=== PATIENT | male | born 1930 | race Asian ===

== ENCOUNTER 2016-08-17 10:50 | Emergency (ER) | payer MEDICARE, MEDICAID ==
[~2016-08-17] VITALS: Ht 162.6 cm; Wt 59.0 kg
[~2016-08-17 10:50] MED LIST: ALLO300T2; ASPI81CH43; INDO50CA82; LISI-275; OYST500T29; PIOG15TA38; PIOG30TA7; SIMIVASTATIN; SITA50TA; TRAM-411; [UNRECOGNIZED DRUG - OTHER]
[2016-08-17 11:09] VITALS: BP 129/69
== END 2016-08-17 13:23 | disposition home or self-care (01) ==
LOC: ER 10:54
DX: B86 Scabies (principal); M10.9 Gout, unspecified; E78.5 Hyperlipidemia, unspecified; I10 Essential (primary) hypertension

== ENCOUNTER 2016-10-23 10:36 | Emergency (ER) | payer MEDICARE, MEDICAID ==
[~2016-10-23] VITALS: Ht 162.6 cm; Wt 59.0 kg
[2016-10-23 12:29] VITALS: BP 130/43
[2016-10-23] MEDS ORDERED: SODIUM CHLORIDE 0.9% 1,000 ML IV ONE (14:37)
[2016-10-23] MEDS ORDERED: MAGNESIUM CITRATE SOLUTION 300 ML BTL PO ONE (14:45)
[2016-10-23] MEDS ORDERED: SODIUM CHLORIDE 0.9% 1,000 ML IV SCH (14:46)
[2016-10-23] MEDS ORDERED: NITROGLYCERIN 0.4 MG SL TAB SL PRN (15:00)
[2016-10-23] MEDS ORDERED: HYDROcodone-ACET 5/325MG TAB PO PRN (15:00)
[2016-10-23] MEDS ORDERED: FAMOTIDINE (10MG/ML) 2ML VL IV SCH (15:00)
[2016-10-23] MEDS ORDERED: ACETAMINOPHEN 500 MG TAB PO PRN (15:00)
[2016-10-23] MEDS ORDERED: MORPHINE SULF INJ 2 MG/ML SYRINGE 1ML IV PRN ×2 (15:00)
[2016-10-23] MEDS ORDERED: LORazepam 0.5 MG TAB PO PRN (15:00)
[2016-10-23] MEDS ORDERED: PROMETHAZINE HCL 25 MG/ML 1ML IV PRN (15:00)
[2016-10-23] MEDS ORDERED: TEMAZEPAM 15 MG CAP PO PRN (15:00)
[2016-10-23] MEDS ORDERED: cefTRIAXone 1GM/50ML D5W 50 ML IV ONE (15:00)
[2016-10-23 15:06] LABS: Urine RBC None Seen /hpf (0 - 3)
[2016-10-23] MEDS ORDERED: ENOXAPARIN SOD 30 MG/0.3 ML SYRINGE SC ONE (15:15)
[2016-10-23] MEDS ORDERED: FAMOTIDINE (10MG/ML) 2ML VL IV ONE (15:15)
[2016-10-23 15:33] LABS: Albumin 4.2 g/dL (3.4-5.0); BUN/Creatinine Ratio 12.4; Bilirubin, Total 0.4 mg/dL (0.2-1.0); Calcium 9.6 mg/dL (8.5-10.1); Potassium 4.5 mmol/L (3.5-5.1); Total Protein 8.7 g/dL (6.4-8.2)
[2016-10-23 15:35] LABS: Basophils # (auto) 0 uL; Basophils % (auto) 0.6 % (0.0-2.0); Eosinophils # (auto) 0.2 uL; Eosinophils % (auto) 2.7 % (0.0-7.0); Hematocrit 40.4 % (41.0-53.0); Hemoglobin 13.5 g/dL (13.5-17.5); Lymphocytes # (auto) 1.8 uL; Mean Corpuscular Hemoglobin 29.9 pg (28.0-32.0); Mean Corpuscular Hgb Conc. 33.3 g/dL (32.0-36.0); Mean Corpuscular Volume 89.8 fL (80.0-100.0); Mean Platelet Volume 8.3 fL (7.4-10.4); Monocytes # (auto) 0.5 uL; Monocytes % (auto) 7.5 % (0.0-12.0); Neutrophils # (auto) 4.5 uL; Neutrophils % (auto) 64.2 % (37.0-80.0); Platelet Count (auto) 212 10^3/uL (140-450); Red Cell Distribution Width 14.4 % (11.6-16.0)
[2016-10-23 16:09] LABS: Partial Thromboplastin Time 26.4 sec (22.64-33.71); Prothrombin Time 10.3 sec (9.37-12.3)
[2016-10-23 16:15] LABS: Urine Bilirubin Negative (Negative); Urine Blood Negative /uL (Negative); Urine Color Yellow (Yellow); Urine Glucose Normal (Normal); Urine Hyaline Cast FEW /lpf (0 - 2); Urine Ketone Negative (Negative); Urine Nitrite Negative (Negative); Urine Urobilinogen Normal (Negative); Urine pH 5.5 (5.0-8.0)
[2016-10-23] MEDS ORDERED: metroNIDAZOLE 500MG/100ML 100 ML IV SCH (18:00)
[2016-10-24] MEDS ORDERED: cefTRIAXone 1GM/50ML D5W 50 ML IV SCH (09:00)
[2016-10-24] MEDS ORDERED: ENOXAPARIN SOD 30 MG/0.3 ML SYRINGE SC SCH (10:00)
[2016-10-24] MEDS ORDERED: FAMOTIDINE (10MG/ML) 2ML VL IV SCH (10:00)
[2016-10-24] MEDS ORDERED: ENOXAPARIN SOD 40 MG/0.4 ML SYRINGE SC SCH (10:00)
== END 2016-10-23 15:47 | disposition left against medical advice (07) ==
LOC: ER 10:46
DX: R19.7 Diarrhea, unspecified (principal); I10 Essential (primary) hypertension; M10.9 Gout, unspecified; E78.5 Hyperlipidemia, unspecified; Z79.82 Long term (current) use of aspirin; Z79.899 Other long term (current) drug therapy
CPT/HCPCS: 36415; 71020; 74000; 80053; 81001; 82150; 82378; 83690; 85025; 85610; 85652; 85730; 86141

== ENCOUNTER 2016-11-18 12:51 | Emergency (ER) | payer MEDICARE, MEDICAID ==
[~2016-11-18] VITALS: Ht 162.6 cm; Wt 59.0 kg
[2016-11-18 19:04] VITALS: BP 125/69
[2016-11-18] MEDS ORDERED: METHOCARBAMOL 500 MG TAB PO ONE (20:15)
[2016-11-18] MEDS ORDERED: KETOROLAC TROMETH 60MG/2ML VIAL IM ONE (20:15)
== END 2016-11-18 21:31 | disposition home or self-care (01) ==
LOC: ER 12:51
DX: M10.052 Idiopathic gout, left hip (principal); M10.051 Idiopathic gout, right hip; M79.1 Myalgia; E78.5 Hyperlipidemia, unspecified; I10 Essential (primary) hypertension; I12.9 Hypertensive chronic kidney disease with stage 1 through stage 4 chronic kidney disease, or unspecified chronic kidney disease; N18.3 Chronic kidney disease, stage 3 (moderate)
CPT/HCPCS: 96372; 99283; J1885

== ENCOUNTER 2016-12-20 09:49 | Emergency (ER) | payer MEDICARE, MEDICAID ==
[~2016-12-20] VITALS: Ht 160 cm; Wt 63.5 kg
[2016-12-20 09:57] VITALS: BP 105/47
== END 2016-12-20 11:37 | disposition home or self-care (01) ==
LOC: ER 09:49
DX: M79.1 Myalgia (principal); E78.5 Hyperlipidemia, unspecified; M10.9 Gout, unspecified; G89.29 Other chronic pain; I10 Essential (primary) hypertension; Z76.0 Encounter for issue of repeat prescription

== ENCOUNTER 2017-06-16 03:04 | Emergency (ER) | payer MEDICARE, MEDICAID ==
[~2017-06-16] VITALS: Ht 154.9 cm; Wt 59.4 kg
[2017-06-16 07:25] VITALS: BP 156/70
== END 2017-06-16 07:44 | disposition home or self-care (01) ==
LOC: ER 03:06
DX: M79.1 Myalgia (principal); E78.00 Pure hypercholesterolemia, unspecified; M10.9 Gout, unspecified; I10 Essential (primary) hypertension; Z79.82 Long term (current) use of aspirin
CPT/HCPCS: 82962

== ENCOUNTER 2017-12-13 10:18 | Emergency (ER) | payer MEDICARE, MEDICAID ==
[~2017-12-13] VITALS: Ht 162.6 cm; Wt 61.2 kg
[~2017-12-13 10:18] MED LIST changes: -PIOG30TA7; +PIOG30TA8
[2017-12-13 11:05] LABS: Basophils # (auto) 0.1 uL; Basophils % (auto) 1.1 % (0.0-2.0); Eosinophils # (auto) 0.3 uL; Eosinophils % (auto) 4.8 % (0.0-7.0); Hematocrit 34.1 % (41.0-53.0); Hemoglobin 11.3 g/dL (13.5-17.5); Lymphocytes % (auto) 15.3 % (10.0-50.0); Mean Corpuscular Hemoglobin 29.8 pg (28.0-32.0); Mean Corpuscular Volume 90.1 fL (80.0-100.0); Monocytes # (auto) 0.6 uL; Monocytes % (auto) 8.4 % (0.0-12.0); Neutrophils # (auto) 4.7 uL; Neutrophils % (auto) 70.4 % (37.0-80.0); Platelet Count (auto) 228 10^3/uL (140-450); Red Blood Cells 3.79 10^6/uL (4.5-5.90); Red Cell Distribution Width 14.2 % (11.8-14.3); White Blood Cell 6.7 10^3/uL (4.4-10.8)
[2017-12-13 11:31] LABS: Albumin 3.3 g/dL (3.4-5.0); BUN/Creatinine Ratio 18.3; Bilirubin, Total 0.3 mg/dL (0.2-1.0); Calcium 9.1 mg/dL (8.5-10.1); Potassium 4.4 mmol/L (3.5-5.1); Total Protein 8.1 g/dL (6.4-8.2)
[2017-12-13 11:50] LABS: Urine WBC None Seen /hpf (0 - 3)
[2017-12-13 12:20] LABS: Urine Bacteria NONE SEEN /hpf (None Seen); Urine Blood Negative /uL (Negative); Urine Specific Gravity 1.012 (1.001-1.035)
[2017-12-13 12:21] VITALS: BP 139/71
== END 2017-12-13 15:23 | disposition home or self-care (01) ==
LOC: ER 10:22
DX: M48.061 Spinal stenosis, lumbar region without neurogenic claudication (principal); M25.552 Pain in left hip; M10.9 Gout, unspecified; G89.29 Other chronic pain; I25.10 Atherosclerotic heart disease of native coronary artery without angina pectoris; E78.5 Hyperlipidemia, unspecified; I12.9 Hypertensive chronic kidney disease with stage 1 through stage 4 chronic kidney disease, or unspecified chronic kidney disease; N18.3 Chronic kidney disease, stage 3 (moderate); Z79.82 Long term (current) use of aspirin; Z95.1 Presence of aortocoronary bypass graft
CPT/HCPCS: 36415; 72131; 73130; 73502; 80053; 81001; 83690; 85025; 93005; 94761

== ENCOUNTER 2018-04-17 08:32 | Emergency (ER) | payer MEDICARE, MEDICAID ==
[~2018-04-17] VITALS: Ht 160 cm; Wt 65.8 kg
[2018-04-17 09:03] VITALS: BP 141/75
[2018-04-17] MEDS ORDERED: HYDROcodone-ACET 7.5/325MG TAB PO ONE (09:15)
== END 2018-04-17 10:41 | disposition home or self-care (01) ==
LOC: ER 08:32
DX: S16.1XXA Strain of muscle, fascia and tendon at neck level, initial encounter (principal); I25.810 Atherosclerosis of coronary artery bypass graft(s) without angina pectoris; R51 Headache; E11.9 Type 2 diabetes mellitus without complications; E78.5 Hyperlipidemia, unspecified; I10 Essential (primary) hypertension; X58.XXXA Exposure to other specified factors, initial encounter; Y93.89 Activity, other specified; Y92.89 Other specified places as the place of occurrence of the external cause; Y99.8 Other external cause status
CPT/HCPCS: 70450; 72125; 93005

== ENCOUNTER 2019-04-28 11:03 | Emergency (ER) | payer MEDICARE, MEDICAID ==
[~2019-04-28] VITALS: Ht 162.6 cm; Wt 65.8 kg
[~2019-04-28 11:03] MED LIST changes: +PIOG30TA20; -PIOG30TA8
[2019-04-28 12:36] VITALS: BP 113/48
[2019-04-28] MEDS ORDERED: ACETAMINOPHEN 325 MG TAB PO ONE (13:15)
== END 2019-04-28 13:32 | disposition home or self-care (01) ==
LOC: ER 11:03
DX: S22.31XA Fracture of one rib, right side, initial encounter for closed fracture (principal); I25.810 Atherosclerosis of coronary artery bypass graft(s) without angina pectoris; E11.9 Type 2 diabetes mellitus without complications; M10.9 Gout, unspecified; E78.5 Hyperlipidemia, unspecified; I10 Essential (primary) hypertension; Z95.1 Presence of aortocoronary bypass graft; Z79.899 Other long term (current) drug therapy; Z79.82 Long term (current) use of aspirin; W01.10XA Fall on same level from slipping, tripping and stumbling with subsequent striking against unspecified object, initial encounter; Y93.01 Activity, walking, marching and hiking; Y99.8 Other external cause status; Y92.89 Other specified places as the place of occurrence of the external cause
CPT/HCPCS: 71101; 93005

== ENCOUNTER 2019-05-06 12:52 | Inpatient (IN) | payer MEDICARE, MEDICAID ==
[~2019-05-06] VITALS: Ht 162.6 cm; Wt 58.9 kg
[2019-05-06] MEDS ORDERED: SODIUM CHLORIDE 0.9% 500 ML IV ONE (13:27)
[2019-05-06] MEDS ORDERED: ONDANSETRON HCL 4 MG/2 ML VIAL IV ONE (13:30)
[2019-05-06 14:14] LABS: Basophils # (auto) 0 uL; Basophils % (auto) 0.8 % (0.0-2.0); Eosinophils # (auto) 0.4 uL; Eosinophils % (auto) 6.6 % (0.0-7.0); Hematocrit 38.6 % (41.0-53.0); Hemoglobin 12.9 g/dL (13.5-17.5); Lymphocytes # (auto) 1.1 uL; Lymphocytes % (auto) 19.6 % (10.0-50.0); Mean Corpuscular Hemoglobin 30.3 pg (28.0-32.0); Mean Corpuscular Hgb Conc. 33.3 g/dL (32.0-36.0); Monocytes # (auto) 0.6 uL; Monocytes % (auto) 11.4 % (0.0-12.0); Neutrophils # (auto) 3.5 uL; Neutrophils % (auto) 61.6 % (37.0-80.0); Platelet Count (auto) 216 10^3/uL (140-450); Red Blood Cells 4.24 10^6/uL (4.5-5.90); Red Cell Distribution Width 14.3 % (11.8-14.3); White Blood Cell 5.6 10^3/uL (4.4-10.8)
[2019-05-06 14:25] LABS: Albumin 3.7 g/dL (3.4-5.0); Anion Gap 3 (5-15); Blood Urea Nitrogen 47 mg/dL (7-18); Calcium 9.2 mg/dL (8.5-10.1); Carbon Dioxide 25 mmol/L (21-32); Chloride 112 mmol/L (98-107); Glucose 118 mg/dL (74-106); Potassium 4.8 mmol/L (3.5-5.1); Sodium 140 mmol/L (136-145)
[2019-05-06 14:31] LABS: Alanine Aminotransferase 39 U/L (16-61); Alkaline Phosphatase 76 U/L (45-117); Aspartate Aminotransferase 32 U/L (15-37); BUN/Creatinine Ratio 24.7; Bilirubin, Total 0.6 mg/dL (0.2-1.0); GFR African American 43 mL/min; GFR Non-African American 36 mL/min; Total Protein 8.3 g/dL (6.4-8.2)
[2019-05-06] MEDS ORDERED: TEMAZEPAM 15 MG CAP PO PRN (14:45)
[2019-05-06] MEDS ORDERED: LACTULOSE 20Gm/30ML SOLN PO PRN (14:45)
[2019-05-06] MEDS ORDERED: MORPHINE SULF INJ 2 MG/ML SYRINGE 1ML IV PRN (14:45)
[2019-05-06] MEDS ORDERED: traMADol HCL 50 MG TAB PO PRN (14:45)
[2019-05-06] MEDS ORDERED: ACETAMINOPHEN 500 MG TAB PO PRN (14:45)
[2019-05-06] MEDS ORDERED: DEXTROSE (50%) 50ML SYRG IV PRN (14:45)
[2019-05-06] MEDS ORDERED: NITROGLYCERIN 0.4 MG SL TAB SL PRN (14:45)
[2019-05-06] MEDS ORDERED: ONDANSETRON HCL 4 MG/2 ML VIAL IV PRN (14:45)
[2019-05-06] MEDS ORDERED: ALBUTEROL SULF 2.5 MG/0.5ML(0.5%) NEB SOLN NEB PRN ×2 (14:45→15:30)
[2019-05-06] MEDS: SODIUM CHLORIDE 0.9% 1,000 ML IV SCH (15:16)
--- NOTE | 2019-05-06 15:22 | NUR ---
Telemetry admit from [facility] admitted to Telemetry unit after SBAR received. Patient oriented to primary RN, unit, room, bed, and unit policies regarding patient care and visiting hours. Patient now on continuous telemetry monitoring, tele box # [id number] and telemetry reading on arrival to unit is SR 78. Patient weighed by bedscale and encouraged to call if they need something. All questions and concerns addressed, patient verbalized understanding. Family member at bedside. Patient does not speak much [place].
[2019-05-06] MEDS ORDERED: cefTRIAXone 1GM/50ML D5W 50 ML IV ONE (15:30)
[2019-05-06 16:49] VITALS: BP 146/50
[2019-05-06] MEDS: InsuLIN REG 1unit/0.01ml Soln (100units/ml) SC SCH ×2 (17:00→21:52)
[2019-05-06 17:11] VITALS: BP 158/73
[2019-05-06] MEDS ORDERED: TUBERCULIN PPD 5 UNIT/0.1 ML ID ONE (18:00)
--- NOTE | 2019-05-06 18:17 | NUR ---
RT NOTE PT WAS SEEN BY RT FRO HHN TX. PT IS EATING EVENING MEAL. NO SOB OR DISTRESS NOTED. FAMILY MEMBER NOTIFIED RT WILL RETURN TO DO HHN TX IN A BIT
[2019-05-06] MEDS: ALBUTEROL SULF 2.5 MG/0.5ML(0.5%) NEB SOLN NEB SCH (18:29)
[2019-05-06] MEDS: IPRATROPIUM BROM 0.5 MG/2.5ML INH SOL NEB SCH (18:29)
--- NOTE | 2019-05-06 18:33 | NUR ---
RT NOTE PT WAS SEEN BY RT FOR HHN TX. PT TOLERATES WELL VIA MASK. FAMILY MEMBER AT BEDSIDE HELPS TO COMMUNICATE WITH PATIENT. PT FOUND ON R/A AND LEFT ON R/A POST TX. CONT ORDERED Addendum: 05/06/19 at 1834 by Laly Vega RT Amended: Links added.
--- NOTE | 2019-05-06 18:45 | NUR ---
Accu Check Accu Check was done after patient ate supper. 149, No insulin given since patient already ate his supper.
[2019-05-06] MEDS: ACCU-CHEK COMFORT CURVE STRIP VI SCH ×2 (19:01→21:51)
--- NOTE | 2019-05-06 19:30 | NUR ---
Opening Shift Note Assumed care of patient, awake and alert oriented x4 with son at the bedside. No s/s of distress SOB or pain at this time. Bed is in lowest locked position with bed rails up x2 and call light is within reach of the patient. Instructed on POC and to call for assist PRN. Provided patient with a specimen cup at bedside and instructed patient that we need a respiratory sample for culture. Patient verbalized understanding.
--- NOTE | 2019-05-06 19:41 | NUR ---
TB: Received Aplisol from pharmacy for TB testing. Asked Charge nurse if there is any paper work needed to be completed in company with TB testing. Charge nurse asked warehouse selector. No verification of documentation for TB administration at this time. Aplisol held and placed in IV fridge. To endorse to day shift nurse.
[2019-05-06 22:00] VITALS: BP 130/69
[2019-05-06 22:53] LABS: Urine Bacteria NONE SEEN /hpf (None Seen); Urine Blood Negative /uL (Negative); Urine Specific Gravity 1.014 (1.001-1.035); Urine WBC <1 /hpf (0 - 3)
[2019-05-07] MEDS: IPRATROPIUM BROM 0.5 MG/2.5ML INH SOL NEB SCH ×3 (00:53→12:03)
[2019-05-07] MEDS: ALBUTEROL SULF 2.5 MG/0.5ML(0.5%) NEB SOLN NEB SCH ×3 (00:53→12:03)
--- NOTE | 2019-05-07 00:53 | NUR ---
RT NOTE PT WAS SEEN BY RT FOR HHN TX. PT TOLERATES WELL VIA MASK. NO ADVERSE REACTION NOTED. CONT ORDERED Addendum: 05/07/19 at 0108 by Laly Vega RT Amended: Links added.
[2019-05-07] MEDS: SODIUM CHLORIDE 0.9% 1,000 ML IV SCH (03:09)
--- NOTE | 2019-05-07 03:27 | NUR ---
TB TEST ADMINISTERED Charge nurse gave okay to administer TB test. Documented time through emar. TB test administered at this time on 05/07/2019 on 0327 on the right forearm. Patient tolerated well. Educated patient not to apply any pressure to the site. Patient verbalized understanding.
--- NOTE | 2019-05-07 04:37 | NUR ---
Endorsed care to night jamie Marcano. Patient resting in bed with breaths even and unlabored.
--- NOTE | 2019-05-07 04:38 | NUR ---
Assumed care of patient. Patient is resting in bed; respirations are even and non-labored. denies pain at this time. Reports feeling dizzy. Bed alarm on for patient safety. 150ml light yellow urine emptied from urinal. Bed is in low locked position side rails up x2. Call light place within patients reach and encouraged patient to call for assistance when needed. Will continue to monitor for changes PRN.
[2019-05-07 05:00] VITALS: BP 120/58
[2019-05-07] MEDS: ACCU-CHEK COMFORT CURVE STRIP VI SCH ×2 (06:33→11:36)
[2019-05-07] MEDS: InsuLIN REG 1unit/0.01ml Soln (100units/ml) SC SCH ×2 (06:33→11:30)
[2019-05-07 07:11] LABS: Potassium 4.6 mmol/L (3.5-5.1)
[2019-05-07 07:16] LABS: Albumin 3.2 g/dL (3.4-5.0); BUN/Creatinine Ratio 24.3; Bilirubin, Total 0.4 mg/dL (0.2-1.0); Calcium 8.5 mg/dL (8.5-10.1); Total Protein 7.5 g/dL (6.4-8.2)
[2019-05-07 08:00] VITALS: BP 152/67
--- NOTE | 2019-05-07 08:00 | NUR ---
Opening Shift Note Assumed care of patient, awake and alert. No S/S of distress/SOB or pain. Instructed on POC and to call for assist PRN, will continue to monitor for changes Q1hr and PRN.
[2019-05-07 09:00] VITALS: BP 152/67
[2019-05-07] MEDS ORDERED: cefTRIAXone 1GM/50ML D5W 50 ML IV SCH (09:00)
--- NOTE | 2019-05-07 09:15 | NUR ---
AMBULATION PATIENT AMBULATING IN ROOM INDEPENDENTLY. GAIT IS STEADY AND UPRIGHT. NAD. NO REPORTS OF PAIN, SOB, OR DIZZINESS.
[2019-05-07] MEDS ORDERED: ENOXAPARIN SOD 30 MG/0.3 ML SYRINGE SC SCH (10:00)
[2019-05-07] MEDS ORDERED: PANTOPRAZOLE 40 MG TAB PO SCH (10:00)
--- NOTE | 2019-05-07 12:52 | NUR ---
AMBULATION PATIENT AMBULATING IN ROOM INDEPENDENTLY. GAIT IS STEADY AND UPRIGHT. NAD.
[2019-05-07 13:00] VITALS: BP 153/72
--- NOTE | 2019-05-07 15:42 | NUR ---
AMBULATION PATIENT AMBULATING IN ROOM INDEPENDENTLY. GAIT IS STEADY AND UPRIGHT. NAD. NO REPORTS OF PAIN, SOB, OR DIZZINESS.
[2019-05-07 16:27] VITALS: BP 148/65
[2019-05-07 17:00] VITALS: BP 148/65
--- NOTE | 2019-05-07 17:00 | NUR ---
TB RECORD SHEET [facility] SKIN TESTING FORM FILLED OUT AND GIVEN TO PATIENT.
== END 2019-05-07 17:20 | disposition home or self-care (01) | DRG 47 ==
LOC: ER 12:52 → TELE 12:53 → TELE-CENTR 15:20
PROVIDERS: ADMIT Internal Medicine; ATTEND Internal Medicine Pulmonary Disease
DX: G45.9 Transient cerebral ischemic attack, unspecified (principal); N17.0 Acute kidney failure with tubular necrosis; E11.21 Type 2 diabetes mellitus with diabetic nephropathy; N18.3 Chronic kidney disease, stage 3 (moderate); Z95.1 Presence of aortocoronary bypass graft; R42 Dizziness and giddiness; E11.22 Type 2 diabetes mellitus with diabetic chronic kidney disease; I25.10 Atherosclerotic heart disease of native coronary artery without angina pectoris; E78.5 Hyperlipidemia, unspecified; J47.9 Bronchiectasis, uncomplicated; I12.9 Hypertensive chronic kidney disease with stage 1 through stage 4 chronic kidney disease, or unspecified chronic kidney disease; M10.9 Gout, unspecified; Z98.49 Cataract extraction status, unspecified eye; Z79.899 Other long term (current) drug therapy
CPT/HCPCS: 36415; 70450; 71045; 71250; 80053; 81001; 82550; 82962; 83036; 84484; 85025; 94640; 94761; 96361; 96365; 96375; G0378; J0696; J1815; J2405

== ENCOUNTER 2019-06-21 11:33 | Emergency (ER) | payer MEDICARE, MEDICAID ==
[~2019-06-21] VITALS: Ht 162.6 cm; Wt 59.0 kg
[~2019-06-21 11:33] MED LIST changes: -PIOG15TA38; -[UNRECOGNIZED DRUG - OTHER]
[2019-06-21 16:13] VITALS: BP 138/74
== END 2019-06-21 16:15 | disposition home or self-care (01) ==
LOC: ER 11:43
DX: S46.912A Strain of unspecified muscle, fascia and tendon at shoulder and upper arm level, left arm, initial encounter (principal); M17.12 Unilateral primary osteoarthritis, left knee; I25.10 Atherosclerotic heart disease of native coronary artery without angina pectoris; E11.9 Type 2 diabetes mellitus without complications; M10.9 Gout, unspecified; E78.5 Hyperlipidemia, unspecified; I10 Essential (primary) hypertension; Z79.899 Other long term (current) drug therapy; X58.XXXA Exposure to other specified factors, initial encounter; Y93.89 Activity, other specified; Y92.89 Other specified places as the place of occurrence of the external cause; Y99.8 Other external cause status
CPT/HCPCS: 73060; 73560

== ENCOUNTER 2019-10-08 10:45 | Emergency (ER) | payer MEDICARE, MEDICAID ==
[~2019-10-08] VITALS: Ht 165.1 cm; Wt 61.2 kg
[2019-10-08 10:56] VITALS: BP 124/50
[2019-10-08] MEDS ORDERED: KETOROLAC TROMETH 15 mg/ml 1ML VL IM ONE (11:15)
[2019-10-08] MEDS ORDERED: methylPREDNISolone SOD SUCC 125 MG/2 ML VL IM ONE (11:15)
== END 2019-10-08 12:05 | disposition home or self-care (01) ==
LOC: ER 10:45
DX: M1A.0421 Idiopathic chronic gout, left hand, with tophus (tophi) (principal); I25.10 Atherosclerotic heart disease of native coronary artery without angina pectoris; I10 Essential (primary) hypertension; E78.5 Hyperlipidemia, unspecified; Z95.1 Presence of aortocoronary bypass graft; Z79.82 Long term (current) use of aspirin; Z79.899 Other long term (current) drug therapy
CPT/HCPCS: 82962; 96372; 99284; J1885; J2930

== ENCOUNTER → 2019-10-19 | Emergency (ER) | payer MEDICARE, MEDICAID ==
[~2019-10-19] VITALS: Ht 162.6 cm; Wt 59.0 kg
[2019-10-19 17:13] VITALS: BP 131/71
== END | disposition home or self-care (01) ==
LOC: ER 11:28
DX: L03.116 Cellulitis of left lower limb (principal); N18.3 Chronic kidney disease, stage 3 (moderate); E78.5 Hyperlipidemia, unspecified; I25.10 Atherosclerotic heart disease of native coronary artery without angina pectoris; I12.9 Hypertensive chronic kidney disease with stage 1 through stage 4 chronic kidney disease, or unspecified chronic kidney disease; E11.22 Type 2 diabetes mellitus with diabetic chronic kidney disease; Z79.82 Long term (current) use of aspirin; Z79.899 Other long term (current) drug therapy
CPT/HCPCS: 73630

== ENCOUNTER 2019-10-22 10:35 | Emergency (ER) | payer MEDICARE, MEDICAID ==
[~2019-10-22] VITALS: Ht 162.6 cm; Wt 61.2 kg
[2019-10-22 11:03] VITALS: BP 142/51
[2019-10-22] MEDS ORDERED: methylPREDNISolone SOD SUCC 125 MG/2 ML VL IM ONE (12:00)
[2019-10-22] MEDS ORDERED: KETOROLAC TROMETH 15 mg/ml 1ML VL IM ONE (12:00)
== END 2019-10-22 12:48 | disposition home or self-care (01) ==
LOC: ER 10:35
DX: M10.041 Idiopathic gout, right hand (principal); I25.10 Atherosclerotic heart disease of native coronary artery without angina pectoris; I12.9 Hypertensive chronic kidney disease with stage 1 through stage 4 chronic kidney disease, or unspecified chronic kidney disease; E11.22 Type 2 diabetes mellitus with diabetic chronic kidney disease; N18.9 Chronic kidney disease, unspecified; E78.5 Hyperlipidemia, unspecified
CPT/HCPCS: 96372; 99284; J1885; J2930

== ENCOUNTER 2019-11-16 15:30 | Emergency (ER) | payer MEDICARE, MEDICAID ==
[~2019-11-16] VITALS: Ht 160 cm; Wt 54.4 kg
[2019-11-16 16:33] LABS: Basophils # (auto) 0.1 10 ^3/uL (0-0.2); Basophils % (auto) 1.2 % (0.0-2.0); Eosinophils # (auto) 0.4 10 ^3/uL (0-0.8); Eosinophils % (auto) 7.4 % (0.0-7.0); Hematocrit 33.5 % (41.0-53.0); Hemoglobin 11.4 g/dL (13.5-17.5); Lymphocytes # (auto) 0.7 10 ^3/uL (0.4-5.4); Lymphocytes % (auto) 12.9 % (10.0-50.0); Mean Corpuscular Hemoglobin 30.1 pg (28.0-32.0); Mean Corpuscular Volume 88.5 fL (80.0-100.0); Monocytes # (auto) 0.7 10 ^3/uL (0-1.3); Monocytes % (auto) 12.8 % (0.0-12.0); Neutrophils # (auto) 3.5 10 ^3/uL (1.6-8.6); Neutrophils % (auto) 65.7 % (37.0-80.0); Nucleated Red Blood Cells % 0.1 %; Platelet Count (auto) 178 10^3/uL (140-450); Red Blood Cells 3.78 10^6/uL (4.5-5.90); Red Cell Distribution Width 13.8 % (11.8-14.3); White Blood Cell 5.3 10^3/uL (4.4-10.8)
[2019-11-16 17:15] VITALS: BP 148/51
[2019-11-16] MEDS ORDERED: methylPREDNISolone SOD SUCC 125 MG/2 ML VL IM ONE (17:15)
[2019-11-16] MEDS ORDERED: methylPREDNISolone SOD SUCC 125 MG/2 ML VL ONE (17:17)
== END 2019-11-16 17:36 | disposition home or self-care (01) ==
LOC: ER 15:30
DX: M10.9 Gout, unspecified (principal); I12.9 Hypertensive chronic kidney disease with stage 1 through stage 4 chronic kidney disease, or unspecified chronic kidney disease; E11.22 Type 2 diabetes mellitus with diabetic chronic kidney disease; N18.9 Chronic kidney disease, unspecified; I25.10 Atherosclerotic heart disease of native coronary artery without angina pectoris; E78.5 Hyperlipidemia, unspecified; Z79.82 Long term (current) use of aspirin; Z79.899 Other long term (current) drug therapy
CPT/HCPCS: 36415; 84550; 85025; 85652; 96372; 99283; J2930

== ENCOUNTER 2020-01-19 15:04 | Emergency (ER) | payer MEDICARE, MEDICAID ==
[~2020-01-19] VITALS: Ht 162.6 cm; Wt 54.4 kg
[2020-01-19 15:48] LABS: Basophils # (auto) 0 10 ^3/uL (0-0.2); Basophils % (auto) 0.4 % (0.0-2.0); Eosinophils # (auto) 0.3 10 ^3/uL (0-0.8); Eosinophils % (auto) 2.5 % (0.0-7.0); Hematocrit 30.6 % (41.0-53.0); Hemoglobin 10.2 g/dL (13.5-17.5); Lymphocytes % (auto) 9.3 % (10.0-50.0); Mean Corpuscular Hemoglobin 29.9 pg (28.0-32.0); Mean Corpuscular Hgb Conc. 33.5 g/dL (32.0-36.0); Mean Corpuscular Volume 89.3 fL (80.0-100.0); Monocytes % (auto) 9.9 % (0.0-12.0); Neutrophils # (auto) 8.2 10 ^3/uL (1.6-8.6); Neutrophils % (auto) 77.9 % (37.0-80.0); Platelet Count (auto) 201 10^3/uL (140-450); Red Blood Cells 3.43 10^6/uL (4.5-5.90); Red Cell Distribution Width 14.3 % (11.8-14.3); White Blood Cell 10.5 10^3/uL (4.4-10.8)
[2020-01-19] MEDS ORDERED: methylPREDNISolone SOD SUCC 125 MG/2 ML VL IM ONE (17:00)
[2020-01-19 18:10] VITALS: BP 118/56
== END 2020-01-19 18:12 | disposition home or self-care (01) ==
LOC: ER 15:04
DX: M10.9 Gout, unspecified (principal); L03.012 Cellulitis of left finger; E11.22 Type 2 diabetes mellitus with diabetic chronic kidney disease; I12.9 Hypertensive chronic kidney disease with stage 1 through stage 4 chronic kidney disease, or unspecified chronic kidney disease; N18.9 Chronic kidney disease, unspecified
CPT/HCPCS: 36415; 73130; 84550; 85025; 96372; 99284; J2930

== ENCOUNTER 2020-02-18 14:34 | Emergency (ER) | payer MEDICARE, MEDICAID ==
[~2020-02-18] VITALS: Ht 157.5 cm; Wt 63.5 kg
[2020-02-18 14:56] VITALS: BP 122/48
== END 2020-02-18 16:12 | disposition home or self-care (01) ==
LOC: ER 14:34
DX: L84 Corns and callosities (principal); I12.9 Hypertensive chronic kidney disease with stage 1 through stage 4 chronic kidney disease, or unspecified chronic kidney disease; E11.22 Type 2 diabetes mellitus with diabetic chronic kidney disease; N18.9 Chronic kidney disease, unspecified; I25.10 Atherosclerotic heart disease of native coronary artery without angina pectoris; M10.9 Gout, unspecified; E78.5 Hyperlipidemia, unspecified; Z87.81 Personal history of (healed) traumatic fracture
CPT/HCPCS: 73630

== ENCOUNTER 2020-03-07 08:35 | Emergency (ER) | payer MEDICARE, MEDICAID ==
[~2020-03-07] VITALS: Ht 160 cm; Wt 59.0 kg
[2020-03-07 10:07] VITALS: BP 90/57
== END 2020-03-07 10:13 | disposition home or self-care (01) ==
LOC: ER 08:35
DX: K59.00 Constipation, unspecified (principal); I12.9 Hypertensive chronic kidney disease with stage 1 through stage 4 chronic kidney disease, or unspecified chronic kidney disease; E11.22 Type 2 diabetes mellitus with diabetic chronic kidney disease; N18.9 Chronic kidney disease, unspecified; I25.10 Atherosclerotic heart disease of native coronary artery without angina pectoris; M10.9 Gout, unspecified; E78.5 Hyperlipidemia, unspecified
CPT/HCPCS: 74018

== ENCOUNTER 2020-03-14 11:54 | Emergency (ER) | payer MEDICARE, MEDICAID ==
[~2020-03-14] VITALS: Ht 162.6 cm; Wt 59.0 kg
[2020-03-14 11:56] VITALS: BP 121/49
== END 2020-03-14 12:58 | disposition left against medical advice (07) ==
LOC: ER 11:54
DX: L03.116 Cellulitis of left lower limb (principal); I10 Essential (primary) hypertension; I25.10 Atherosclerotic heart disease of native coronary artery without angina pectoris; E11.9 Type 2 diabetes mellitus without complications; E78.5 Hyperlipidemia, unspecified; Z79.899 Other long term (current) drug therapy; Z79.82 Long term (current) use of aspirin

== ENCOUNTER → 2020-03-16 | Emergency (ER) | payer MEDICARE, MEDICAID ==
[~2020-03-16] VITALS: Ht 160 cm; Wt 59.0 kg
[2020-03-16 10:00] VITALS: BP 134/48
== END | disposition home or self-care (01) ==
LOC: ER 09:23
DX: L03.116 Cellulitis of left lower limb (principal); I12.9 Hypertensive chronic kidney disease with stage 1 through stage 4 chronic kidney disease, or unspecified chronic kidney disease; E11.22 Type 2 diabetes mellitus with diabetic chronic kidney disease; N18.9 Chronic kidney disease, unspecified
CPT/HCPCS: 73630

== ENCOUNTER 2020-05-01 11:05 | Emergency (ER) | payer MEDICARE, MEDICAID ==
[~2020-05-01] VITALS: Ht 162.6 cm; Wt 72.6 kg
[2020-05-01 12:39] VITALS: BP 132/65
[2020-05-01] MEDS ORDERED: KETOROLAC TROMETH 60MG/2ML VIAL IM ONE (13:45)
[2020-05-01] MEDS ORDERED: methylPREDNISolone SOD SUCC 125 MG/2 ML VL IM ONE (13:45)
== END 2020-05-01 14:03 | disposition home or self-care (01) ==
LOC: ER 11:05
DX: M10.9 Gout, unspecified (principal); I12.9 Hypertensive chronic kidney disease with stage 1 through stage 4 chronic kidney disease, or unspecified chronic kidney disease; N18.9 Chronic kidney disease, unspecified; I25.10 Atherosclerotic heart disease of native coronary artery without angina pectoris; E78.5 Hyperlipidemia, unspecified; Z79.82 Long term (current) use of aspirin; Z79.899 Other long term (current) drug therapy
CPT/HCPCS: 73200; 96372; 99284; J1885; J2930

== ENCOUNTER 2020-06-05 13:25 | Emergency (ER) | payer MEDICARE, MEDICAID ==
[~2020-06-05] VITALS: Ht 160 cm; Wt 72.6 kg
[2020-06-05 15:05] VITALS: BP 119/64
[2020-06-05] MEDS ORDERED: ACETAMINOPHEN 500 MG TAB PO ONE (15:45)
== END 2020-06-05 15:55 | disposition home or self-care (01) ==
LOC: ER 13:25
DX: M25.511 Pain in right shoulder (principal); E11.22 Type 2 diabetes mellitus with diabetic chronic kidney disease; I12.9 Hypertensive chronic kidney disease with stage 1 through stage 4 chronic kidney disease, or unspecified chronic kidney disease; N18.9 Chronic kidney disease, unspecified; E78.5 Hyperlipidemia, unspecified; Z95.1 Presence of aortocoronary bypass graft

== ENCOUNTER 2020-06-19 10:04 | Emergency (ER) | payer MEDICARE, MEDICAID ==
[~2020-06-19] VITALS: Ht 162.6 cm; Wt 59.0 kg
[2020-06-19 12:50] VITALS: BP 133/61
== END 2020-06-19 15:32 | disposition home or self-care (01) ==
LOC: ER 10:04
DX: S46.911A Strain of unspecified muscle, fascia and tendon at shoulder and upper arm level, right arm, initial encounter (principal); J18.9 Pneumonia, unspecified organism; I12.9 Hypertensive chronic kidney disease with stage 1 through stage 4 chronic kidney disease, or unspecified chronic kidney disease; E11.22 Type 2 diabetes mellitus with diabetic chronic kidney disease; I25.10 Atherosclerotic heart disease of native coronary artery without angina pectoris; E78.5 Hyperlipidemia, unspecified; N18.9 Chronic kidney disease, unspecified; Z79.899 Other long term (current) drug therapy; Z79.82 Long term (current) use of aspirin; X58.XXXA Exposure to other specified factors, initial encounter; Y93.89 Activity, other specified; Y92.89 Other specified places as the place of occurrence of the external cause; Y99.8 Other external cause status
CPT/HCPCS: 71046; 73030

== ENCOUNTER 2020-06-24 10:22 | Emergency (ER) | payer MEDICARE, MEDICAID ==
[~2020-06-24] VITALS: Ht 160 cm; Wt 54.4 kg
[2020-06-24 11:25] VITALS: BP 144/78
[2020-06-24] MEDS ORDERED: traMADol HCL 50 MG TAB PO ONE (11:30)
[2020-06-24] MEDS ORDERED: KETOROLAC TROMETH 30 MG/ML 1ML VIAL IM ONE (11:30)
== END 2020-06-24 11:51 | disposition home or self-care (01) ==
LOC: ER 10:22
DX: M19.011 Primary osteoarthritis, right shoulder (principal); I25.10 Atherosclerotic heart disease of native coronary artery without angina pectoris; E11.9 Type 2 diabetes mellitus without complications; I10 Essential (primary) hypertension; E78.5 Hyperlipidemia, unspecified; Z79.82 Long term (current) use of aspirin; Z79.899 Other long term (current) drug therapy; Z95.1 Presence of aortocoronary bypass graft
CPT/HCPCS: 96372; 99283; J1885